=== PATIENT | male | born 1960 | race Caucasian/White ===

== ENCOUNTER 2017-06-15 08:35 | Day surgery (SDC) | payer OTHER ==
[~2017-06-15] VITALS: Ht 193 cm; Wt 96.3 kg
[2017-06-15] MEDS ORDERED: LIDOCAINE 1%, 2ML ONE (09:12)
[2017-06-15] MEDS ORDERED: NO MEDS PER PT (09:16)
[2017-06-15] MEDS ORDERED: LACTATED RINGERS 1,000 ML IV SCH (09:17)
[2017-06-15 09:18] VITALS: BP 143/82
[2017-06-15] MEDS ORDERED: LIDOCAINE 1%, 2ML SQ PRN (09:30)
[2017-06-15] MEDS ORDERED: BUPIVACAINE/PF 0.5% ONE (11:40)
[2017-06-15] MEDS ORDERED: CEFAZOLIN 1,000 MG ONE (12:15)
[2017-06-15] MEDS ORDERED: KETOROLAC 30 MG/1 ML ONE (12:15)
[2017-06-15] MEDS ORDERED: DEXAMETHASONE 4 MG/ML, 5ML ONE (12:15)
[2017-06-15] MEDS ORDERED: ONDANSETRON 2MG/ML, 2ML ONE (12:15)
[2017-06-15] MEDS ORDERED: FENTANYL PF 100 MCG/2ML ONE ×2 (12:31→13:20)
[2017-06-15] MEDS ORDERED: LORazepam 2 MG/ML, 1ML IVPush PRN (13:00)
[2017-06-15] MEDS ORDERED: PROMETHAZINE 25 MG/ML, 1ML IV PRN (13:00)
[2017-06-15] MEDS ORDERED: FENTANYL PF 100 MCG/2ML IV PRN (13:00)
[2017-06-15] MEDS ORDERED: ONDANSETRON 2MG/ML, 2ML IVPush PRN (13:00)
[2017-06-15] MEDS ORDERED: ACETAMINOPHEN 325 MG TABLET PO PRN (13:00)
[2017-06-15] MEDS ORDERED: OXYcodone 5 MG/5 ML ORAL.SOL UDC PO PRN (13:00)
[2017-06-15] MEDS ORDERED: HYDROmorphone 1 MG/ML, 1ML IV PRN (13:00)
[2017-06-15] MEDS ORDERED: hydrALAzine 20 MG/ML, 1ML IV PRN (13:00)
[2017-06-15] MEDS ORDERED: MIDAZOLAM 1 MG/ML, 2ML IV PRN (13:00)
[2017-06-15] MEDS ORDERED: LABETALOL 5MG/ML, 20ML IV PRN (13:00)
[2017-06-15] MEDS ORDERED: MEPERIDINE/PF 25MG/0.5ML IVPush PRN (13:00)
[2017-06-15] MEDS ORDERED: OXYcodone 5 MG/5 ML ORAL.SOL UDC ONE (13:30)
[2017-06-15] MEDS ORDERED: ACETAMINOPHEN 650 MG/20.3 ML UDC ONE (13:30)
== END 2017-06-15 16:00 ==
LOC: OUT 08:35
PROVIDERS: ATTEND Urology
DX: N43.3 Hydrocele, unspecified (principal); Z98.890 Other specified postprocedural states
CPT/HCPCS: 55040; 81003; 88302; J0690; J1100; J1885; J2405; J3010; J3490; J7120